=== PATIENT | female | born 1945 | race Caucasian/White ===

== ENCOUNTER → 2023-09-07 14:30 | Outpatient (REF) | payer MEDICARE, BC, SELFPAY | LOC: RAD 14:30 | PROVIDERS: ATTENDING PHYSICIAN Internal Medicine | DX: Z13.820 Encounter for screening for osteoporosis (principal); Z78.0 Asymptomatic menopausal state | CPT/HCPCS: 77080 ==

== ENCOUNTER → 2024-10-24 12:17 | Outpatient (REF) | payer MEDICARE, BC, SELFPAY | LOC: RAD 12:17 | PROVIDERS: ATTENDING PHYSICIAN Nurse Practitioner Family; FAMILY PHYSICIAN Internal Medicine | DX: Z86.718 Personal history of other venous thrombosis and embolism (principal); R60.9 Edema, unspecified | CPT/HCPCS: 93971 ==

== ENCOUNTER → 2024-12-07 20:25 | Outpatient (REF) | payer MEDICARE, BC, SELFPAY | LOC: MRI 3T 20:25 | PROVIDERS: ATTENDING PHYSICIAN Nurse Practitioner Family; FAMILY PHYSICIAN Internal Medicine | DX: R25.1 Tremor, unspecified (principal) | CPT/HCPCS: 70551 ==